=== PATIENT | female | born 1995 | race Caucasian/White ===

== ENCOUNTER 2017-03-09 23:29 | Emergency (ER) | payer MEDICARE ==
[2017-03-10 00:08] LABS: HCG URINE NEGATIVE (NEGATIVE)
[2017-03-10 00:17] LABS: APPEARANCE CLEAR (CLEAR); BILIRUBIN NEGATIVE (NEGATIVE); COLOR YELLOW (YELLOW); GLUCOSE NEGATIVE (NEGATIVE); KETONE NEGATIVE (NEGATIVE); NITRITE NEGATIVE (NEGATIVE); PROTEIN NEGATIVE (NEGATIVE); UROBILINOGEN NORMAL (NORMAL)
[2017-03-10 00:18] LABS: BACTERIA FEW /hpf (NONE SEEN); EPITHELIAL CELLS 0-5 /hpf (0-5); RED CELLS - URINE 0-5 /hpf (0-5)
== END 2017-03-10 00:53 | disposition home or self-care (01) ==
LOC: D.ER 23:29
PROVIDERS: Nurse Practitioner Family
DX: N39.0 Urinary tract infection, site not specified (principal); R11.0 Nausea

== ENCOUNTER 2017-05-04 20:32 | Emergency (ER) | payer SELFPAY | END 2017-05-04 21:44 | disposition left against medical advice (07) | LOC: D.ER 20:32 | DX: F41.0 Panic disorder [episodic paroxysmal anxiety] (principal) ==